=== PATIENT | male | born 1945 | race Caucasian/White ===

== ENCOUNTER 2016-09-12 14:42 | Emergency (ER) | payer MEDICARE, OTHER ==
[2016-05-05 07:21] VITALS: BMI 29.3
[~2016-09-12 14:42] MED LIST: BETAPACE 80 MG80 MG PO; CLEOCIN HCL300 MG PO; DESERYL100 MG PO; MACROBID100 MG PO; PLAVIX75 MG PO; PROZAC20 MG PO; XANAX0.25 MG PO
[2016-09-12 15:52] LABS: BASOPHILS 0.4 % (0.0-2.0); EOSINOPHILS 1.1 % (0-7); HEMATOCRIT 42.8 % (42.0-54.0); HEMOGLOBIN 14.3 g/dL (13.5-17.5); IMMATURE GRANULOCYTES 0.2 % (0-5); LYMPHOCYTES 34.2 % (15-50); MCH 29.7 pg (26.0-34.0); MCHC 33.4 g/dL (31.0-37.0); MEAN PLATELET VOLUME 9.7 fL (7.4-10.4); MONOCYTES 7.1 % (2-11); PLATELET COUNT 174 10x3/uL (130-400); RBC 4.81 10x6/uL (4.20-6.10); RDW 14.2 % (11.5-14.5); WBC 4.5 10x3/uL (4.8-10.8)
[2016-09-12 16:00] LABS: APPEARANCE HAZY (CLEAR); BACTERIA MODERATE /hpf (NONE SEEN); BILIRUBIN NEGATIVE (NEGATIVE); COLOR YELLOW (YELLOW); GLUCOSE NEGATIVE (NEGATIVE); KETONE NEGATIVE (NEGATIVE); LEUKOCYTE ESTERASE TRACE (NEGATIVE); MUCUS >1+ /lpf (NONE SEEN); NITRITE POSITIVE (NEGATIVE); PROTEIN NEGATIVE (NEGATIVE); UROBILINOGEN NORMAL (NORMAL)
[2016-09-12 16:08] LABS: ALBUMIN 3.9 g/dL (3.4-5.0); ALKALINE PHOSPHATASE 46 U/L (46-116); ALT (SGPT) 26 U/L (10-68); BILIRUBIN - TOTAL 0.37 mg/dL (0.2-1.3); CALC OSMOLALITY 279 mosm/kg (275-300); CALCIUM 8.7 mg/dL (8.5-10.1); CARBON DIOXIDE 31.1 mmol/L (21.0-32.0); CHLORIDE - SERUM 103 mmol/L (98-107); CREATININE - SERUM 1.4 mg/dL (0.6-1.3); POTASSIUM - SERUM 4.2 mmol/L (3.5-5.1); PROTEIN - SERUM 7.2 g/dL (6.4-8.2); SODIUM 139 mmol/L (136-145); UREA NITROGEN 17 mg/dL (7-18); eGFR NON AFRICAN AMERICAN 53 mL/min (90-120)
[2016-09-12 16:10] LABS: GLUCOSE 100 mg/dL (74-106)
[2016-09-12 16:19] LABS: CKMB 0.7 U/L (0.0-3.6); CREATINE KINASE 149 UL (21-232); PHOSPHOROUS 3.7 mg/dL (2.5-4.9)
[2016-09-12 16:20] LABS: TROPONIN-I < 0.017 ng/mL (0.000-0.060)
[2016-10-19] MEDS ORDERED: CYCLOBENZAPRINE10 MG PO (08:44)
[2016-10-19] MEDS ORDERED: VITAMIN B-122500 MCG PO (08:45)
[2016-10-19] MEDS ORDERED: MULTIPLE VITAMI1 TA1 PO (08:45)
[2016-10-19] MEDS ORDERED: VITAMIN D31000 UNI2 PO (08:45)
[2016-10-19] MEDS ORDERED: CRANBERRY 400 M1 TA1 PO (08:46)
== END 2016-09-12 19:55 | disposition home or self-care (01) ==
LOC: D.ER 14:42
PROVIDERS: Emergency Medicine
DX: N39.0 Urinary tract infection, site not specified (principal); R31.9 Hematuria, unspecified; R94.31 Abnormal electrocardiogram [ECG] [EKG]; R07.89 Other chest pain; K80.50 Calculus of bile duct without cholangitis or cholecystitis without obstruction; C67.9 Malignant neoplasm of bladder, unspecified; I45.10 Unspecified right bundle-branch block

== ENCOUNTER 2016-10-20 06:18 | Day surgery (SDC) | payer MEDICARE, OTHER ==
[2016-10-19 09:31] LABS: BASOPHILS 0.4 % (0-2); EOSINOPHILS 2.7 % (0-7); HEMATOCRIT 44.7 % (42.0-54.0); HEMOGLOBIN 14.9 g/dL (13.5-17.5); IMMATURE GRANULOCYTES 0.2 % (0-5); LYMPHOCYTES 37.9 % (15-50); MCH 30.2 pg (26.0-34.0); MCHC 33.3 g/dL (31.0-37.0); MCV 90.7 fL (80.0-100.0); MEAN PLATELET VOLUME 9.3 fL (7.4-10.4); MONOCYTES 9.2 % (2-11); NEUTROPHILS 49.6 % (40-80); PLATELET COUNT 172 10x3/uL (130-400); RBC 4.93 10x6/uL (4.20-6.10); RDW 13.9 % (11.5-14.5); WBC 4.9 10x3/uL (4.8-10.8)
[2016-10-19 09:39] LABS: APTT 25.7 SECONDS (22.8-39.4); INR 1.05 (0.85-1.17); PROTIME 13.6 SECONDS (11.6-15.0)
[2016-10-19 09:53] LABS: CALCIUM 8.7 mg/dL (8.5-10.1); CARBON DIOXIDE 29.1 mmol/L (21.0-32.0); CREATININE - SERUM 1.4 mg/dL (0.6-1.3); POTASSIUM - SERUM 4.1 mmol/L (3.5-5.1)
[~2016-10-20] VITALS: Ht 180.3 cm; Wt 100.7 kg
[~2016-10-20 06:18] MED LIST changes: +CRANBERRY 400 M1 TA1 PO; +CYCLOBENZAPRINE10 MG PO; +MULTIPLE VITAMI1 TA1 PO; +VITAMIN B-122500 MCG PO; +VITAMIN D31000 UNI2 PO
[2016-10-20 07:10] VITALS: BP 121/67; Ht 180.3 cm; Wt 100.7 kg
--- NOTE | 2016-10-20 08:36 | NUR ---
HX OF BLOOD CLOTS, NO SCD APPLIED. UROSTOMY BAG ON ABD, DRAPED AROUND SITE
[2016-10-20] MEDS ORDERED: HYDROCODON-ACE1 EAC7 PO (09:06)
--- NOTE | 2016-10-20 15:11 | OP ---
PATIENT NAME: CHERYL GODDARD MEDICAL RECORD: [id number] :45 LOCATION:D.[facility] ADMISSION DATE: SURGEON: CATALINA FELDER MD DATE OF OPERATION: 10/20/2016 SURGEON: Dr. Catalina Felder PREOPERATIVE DIAGNOSES: 1. Symptomatic cholelithiasis. 2. Diabetes. 3. Malignant neoplasm of the prostate. POSTOPERATIVE DIAGNOSES: 1. Symptomatic cholelithiasis. 2. Diabetes. 3. Malignant neoplasm of the prostate. PROCEDURE PERFORMED: Laparoscopic cholecystectomy. ANESTHESIA: General. COMPLICATIONS: None. SPECIMENS: Gallbladder. Case was clean contaminated. ESTIMATED BLOOD LOSS: 20 cc. OPERATIVE COURSE: After consent was obtained, the patient was taken to the operating room and placed in the supine position on the operating table. Next, general anesthesia was given via endotracheal intubation after a timeout was performed to confirm the correct patient and procedure. The abdomen was then prepped and draped in typical sterile fashion. Local anesthetic was injected just above the umbilicus. A stab incision was made with 11-blade scalpel. Using a 5-mm bladeless optical trocar, the abdomen was entered under direct laparoscopic vision. Adequate pneumoperitoneum was achieved. The abdominal cavity was inspected. No evidence of bowel injury. No evidence of bleeding. The patient was then placed in the steep reverse Trendelenburg position. All remaining trocars were then placed after the administration of local anesthetic, two 5-mm trocars in the right upper quadrant and 11-mm trocar in the subxiphoid position. The fundus of the gallbladder was grasped and retracted cephalad. The infundibulum was grasped and retracted laterally. The peritoneum was incised using electrocautery. Blunt dissection was then performed until the critical view was obtained. The cystic duct lateral, cystic artery medial, liver in a posterior window. Two clips were placed in the proximal cystic artery, 1 clip distal, 3 clips were placed in the proximal cystic duct, 1 clip distal, but duct and artery were then transected with laparoscopic Metzenbaum scissors. The remaining portion of the gallbladder was then dissected off the liver bed using electrocautery. Once complete, it was grasped with the tenaculum and removed through the 11-mm trocar and sent for permanent pathology. The operative site was then copiously irrigated and suctioned. Careful attention was paid to hemostasis, which was obtained in the liver bed using electrocautery. Again, the area was copiously irrigated and suctioned. The abdominal cavity was inspected. There was no evidence of bowel injury. No OPERATIVE REPORT [id number] CHERYL GODDARD evidence of bleeding, no evidence of bile leak. There is [address] in the cystic duct. Two clips in place in the cystic artery. At this time, all remaining instruments were removed. The abdomen was desufflated. Trocars were removed. Skin was closed with 4-0 Monocryl, Mastisol and Steri-Strips. At the end of the case, all needle and instrument counts were correct. No complications occurred. The patient extubated and transferred to the PACU in stable condition. TRANSINT:[id number] Voice Confirmation ID: [id number] DOCUMENT ID: [id number] CATALINA FELDER MD at 1511 CC: [id number] DICTATION DATE: 10/20/16 0904 CONCRETE PUMP OPERATOR HELPER: 10/20/16 1503 [facility] 10/20/16 [facility] [address] [place] [address]
== END 2016-10-20 11:40 | disposition home or self-care (01) ==
LOC: D.OPS 06:18 → D.PAN 08:00 → D.OPS 11:40
PROVIDERS: Anesthesiology
DX: K80.10 Calculus of gallbladder with chronic cholecystitis without obstruction (principal); K82.8 Other specified diseases of gallbladder; E11.9 Type 2 diabetes mellitus without complications

== ENCOUNTER → 2016-10-29 13:04 | Outpatient (CLI) | payer MEDICARE, OTHER ==
[2016-10-20 07:10] VITALS: BMI 31.0
[~2016-10-29 13:04] MED LIST changes: +HYDROCODON-ACE1 EAC7 PO
== END | disposition home or self-care (01) ==
LOC: D.LABREF 13:04
DX: R82.90 Unspecified abnormal findings in urine (principal)

== ENCOUNTER → 2016-11-19 13:37 | Outpatient (CLI) | payer MEDICARE, OTHER ==
[2016-10-20 07:10] VITALS: BMI 31.0
== END | disposition home or self-care (01) ==
LOC: D.NM 13:37
DX: N18.9 Chronic kidney disease, unspecified (principal)

== ENCOUNTER → 2016-12-07 14:09 | Outpatient (CLI) | payer MEDICARE, OTHER ==
[2016-10-20 07:10] VITALS: BMI 31.0
[2016-12-07 14:31] LABS: ANION GAP 12.6 mmol/L (8-16); CALCIUM 9.1 mg/dL (8.5-10.1); CARBON DIOXIDE 29.6 mmol/L (21.0-32.0); CREATININE - SERUM 1.5 mg/dL (0.6-1.3); POTASSIUM - SERUM 4.2 mmol/L (3.5-5.1)
== END | disposition home or self-care (01) ==
LOC: D.LAB 14:09
PROVIDERS: Urology
DX: N19 Unspecified kidney failure (principal)

== ENCOUNTER → 2017-01-14 12:26 | Outpatient (CLI) | payer MEDICARE, OTHER ==
[2016-10-20 07:10] VITALS: BMI 31.0
== END | disposition home or self-care (01) ==
LOC: D.US 12:26
DX: E11.22 Type 2 diabetes mellitus with diabetic chronic kidney disease (principal); N18.3 Chronic kidney disease, stage 3 (moderate)

== ENCOUNTER → 2017-01-20 09:00 | Outpatient (CLI) | payer MEDICARE, OTHER ==
[2016-10-20 07:10] VITALS: BMI 31.0
== END | disposition home or self-care (01) ==
LOC: D.CT 09:00
DX: R93.429 Abnormal radiologic findings on diagnostic imaging of unspecified kidney (principal); N18.3 Chronic kidney disease, stage 3 (moderate)

== ENCOUNTER 2017-04-11 05:13 | Day surgery (SDC) | payer MEDICARE, OTHER ==
[2017-04-08 10:24] LABS: BASOPHILS 0.6 % (0-2); EOSINOPHILS 2.6 % (0-7); HEMATOCRIT 44.3 % (42.0-54.0); HEMOGLOBIN 14.9 g/dL (13.5-17.5); IMMATURE GRANULOCYTES 0.2 % (0-5); LYMPHOCYTES 35.3 % (15-50); MCH 30.4 pg (26.0-34.0); MCHC 33.6 g/dL (31.0-37.0); MCV 90.4 fL (80.0-100.0); MONOCYTES 7.5 % (2-11); NEUTROPHILS 53.8 % (40-80); PLATELET COUNT 193 10x3/uL (130-400); WBC 4.7 10x3/uL (4.8-10.8)
[2017-04-08 10:40] LABS: ANION GAP 11.1 mmol/L (8-16); CALCIUM 8.9 mg/dL (8.5-10.1); CARBON DIOXIDE 30.3 mmol/L (21.0-32.0); CREATININE - SERUM 1.2 mg/dL (0.6-1.3); POTASSIUM - SERUM 4.4 mmol/L (3.5-5.1)
[~2017-04-11 05:13] MED LIST changes: +JANUVIA100 MG PO
[2017-04-11 07:52] VITALS: BP 115/74; BMI 31.0
--- NOTE | 2017-04-11 09:42 | NUR ---
SECOND TIME OUT AT 0937 FOR PORT REMOVAL. SAME STAFF.
[2017-04-11] MEDS ORDERED: OXYCODONE HCL5 MG PO (09:51)
--- NOTE | 2017-04-11 19:28 | OP ---
PATIENT NAME: CHERYL GODDARD MEDICAL RECORD: [id number] :45 LOCATION:D.[facility] ADMISSION DATE: SURGEON: CATALINA FELDER MD DATE OF OPERATION: 04/11/2017 SURGEON: Catalina Felder MD PREOPERATIVE DIAGNOSES: 1. Lipoma of abdominal wall 2. Prostate cancer. 3. Diabetes. POSTOPERATIVE DIAGNOSES: 1. Lipoma of abdominal wall 2. Prostate cancer. 3. Diabetes. PROCEDURE PERFORMED: 1. Excisional biopsy of a right flank lipoma 6 x 5 x 5 cm. 2. Removal of a tunneled port left chest wall. ANESTHESIA: General. COMPLICATIONS: None. SPECIMENS: 1. Lipoma 6 x 5 x 5 cm. 2. Tunneled PowerPort and catheter. Case was clean. COMPLICATIONS: None. ESTIMATED BLOOD LOSS: 20 cc. OPERATIVE COURSE: After consent was obtained, the patient was taken to the operating room and placed in the supine position on the operative table. Next, general anesthesia was given via endotracheal intubation after a timeout was taken to confirm the correct patient and procedure. The patient was then placed in the left lateral decubitus position on a beanbag. The right flank was prepped and draped in typical sterile fashion. A 20 cc of local anesthetic were injected. Skin was incised over the lipoma with a 15 blade scalpel. Dissection continued. The mass was circumferentially dissected using Metzenbaum scissors. The lipoma was within the latissimus muscle on the back. Dissection continued until the lipoma was circumferentially excised and sent it through for pathology. The wound bed was copiously irrigated and suctioned. Attention was achieved hemostasis. The wound was closed in multiple layers. Deep fascia was closed with 3-0 Vicryl sutures, superficial fascia was closed with 3-0 Vicryl suture. The skin was closed with 4-0 Monocryl, Mastisol and Steri-Strips. Next, the drapes removed. The patient was repositioned into the supine position. Left chest wall was then prepped and draped in typical sterile fashion. A 10 cc of local anesthetic were injected. The previous incision was opened using a 15-blade scalpel. Dissection continued to the level of the port using a 15-blade, scalpel, and electrocautery. The port was circumferentially OPERATIVE REPORT [id number] CHERYL GODDARD dissected. Once it was free, it was grasped with a clamp. The port was removed as well as the tunneled catheter. The specimen was sent off the field. The wound was copiously irrigated and suctioned. Hemostasis was obtained with electrocautery. The wound was closed in 2 layers. The fascial layer was closed with 3-0 Vicryl suture. The skin was closed with 4-0 Monocryl, Mastisol and Steri-Strips. At the end of the case, all needle and instrument counts were correct. No complications occurred. The patient was extubated and transferred to the PACU in stable condition. TRANSINT:[id number] Voice Confirmation ID: [id number] DOCUMENT ID: [id number] CATALINA FELDER MD at 1928 CC: [id number] DICTATION DATE: 04/11/17 0957 BENCH WORKER APPRENTICE: 04/11/17 1143 [facility] 04/11/17 [facility] [address] [place] [address]
== END 2017-04-11 11:30 | disposition home or self-care (01) ==
LOC: D.OPS 05:13 → D.PAN 08:00 → D.OPS 11:30
PROVIDERS: Anesthesiology
DX: D17.1 Benign lipomatous neoplasm of skin and subcutaneous tissue of trunk (principal); C61 Malignant neoplasm of prostate; E11.9 Type 2 diabetes mellitus without complications; Z01.812 Encounter for preprocedural laboratory examination

== ENCOUNTER → 2017-05-03 16:10 | Outpatient (CLI) | payer MEDICARE, OTHER ==
[2017-04-11 07:52] VITALS: BMI 31.0
[~2017-05-03 16:10] MED LIST changes: +OXYCODONE HCL5 MG PO
== END | disposition home or self-care (01) ==
LOC: D.LABREF 16:10
DX: N39.0 Urinary tract infection, site not specified (principal)

== ENCOUNTER → 2017-05-24 14:47 | Outpatient (CLI) | payer MEDICARE, OTHER | END | disposition home or self-care (01) | LOC: D.LABREF 14:47 | DX: R31.9 Hematuria, unspecified (principal); R79.9 Abnormal finding of blood chemistry, unspecified ==

== ENCOUNTER → 2018-01-19 17:09 | Outpatient (CLI) | payer MEDICARE, OTHER | END | disposition home or self-care (01) | LOC: D.LABREF 17:09 | DX: N39.0 Urinary tract infection, site not specified (principal) ==

== ENCOUNTER → 2018-01-31 14:51 | Outpatient (CLI) | payer MEDICARE, OTHER | END | disposition home or self-care (01) | LOC: D.CT 14:51 | DX: N39.0 Urinary tract infection, site not specified (principal) ==

== ENCOUNTER → 2018-02-03 17:42 | Outpatient (CLI) | payer MEDICARE, OTHER ==
[2018-02-03 18:50] LABS: APPEARANCE CLEAR (CLEAR); BILIRUBIN NEGATIVE (NEGATIVE); COLOR YELLOW (YELLOW); GLUCOSE NEGATIVE (NEGATIVE); KETONE NEGATIVE (NEGATIVE); NITRITE NEGATIVE (NEGATIVE); PROTEIN NEGATIVE (NEGATIVE); UROBILINOGEN NORMAL (NORMAL)
== END | disposition home or self-care (01) ==
LOC: D.LABREF 17:42
PROVIDERS: Urology
DX: N39.0 Urinary tract infection, site not specified (principal)

== ENCOUNTER → 2018-04-12 21:04 | Outpatient (CLI) | payer MEDICARE, OTHER | END | disposition home or self-care (01) | LOC: D.LABREF 21:04 | DX: N39.0 Urinary tract infection, site not specified (principal) ==

== ENCOUNTER → 2018-04-28 18:36 | Outpatient (CLI) | payer MEDICARE, OTHER | END | disposition home or self-care (01) | LOC: D.LABREF 18:36 | DX: R31.9 Hematuria, unspecified (principal); D72.829 Elevated white blood cell count, unspecified ==

== ENCOUNTER → 2018-05-30 19:50 | Outpatient (CLI) | payer MEDICARE, OTHER ==
[2018-05-30 20:11] LABS: APPEARANCE CLEAR (CLEAR); BILIRUBIN NEGATIVE (NEGATIVE); COLOR YELLOW (YELLOW); GLUCOSE NEGATIVE (NEGATIVE); KETONE NEGATIVE (NEGATIVE); NITRITE NEGATIVE (NEGATIVE); PROTEIN TRACE mg/dL (NEGATIVE); SPECIFIC GRAVITY 1.015 (1.005-1.020); UROBILINOGEN NORMAL (NORMAL)
[2018-05-30 20:14] LABS: BACTERIA FEW /hpf (NONE SEEN); RED CELLS - URINE OCC /hpf (0-5); WHITE CELLS - URINE OCC /hpf (0-5)
== END | disposition home or self-care (01) ==
LOC: D.LABREF 19:50
PROVIDERS: Urology
DX: N39.0 Urinary tract infection, site not specified (principal)

== ENCOUNTER → 2018-08-02 20:47 | Outpatient (CLI) | payer MEDICARE, OTHER | END | disposition home or self-care (01) | LOC: D.LABREF 20:47 | DX: R82.71 Bacteriuria (principal) ==

== ENCOUNTER → 2018-08-28 19:28 | Outpatient (CLI) | payer MEDICARE, OTHER ==
[2018-08-28 19:54] LABS: BASOPHILS 0.6 % (0-2); EOSINOPHILS 1.9 % (0-7); HEMATOCRIT 42.5 % (42.0-54.0); HEMOGLOBIN 14.2 g/dL (13.5-17.5); IMMATURE GRANULOCYTES 0.2 % (0-5); LYMPHOCYTES 23.1 % (15-50); MCH 30.3 pg (26.0-34.0); MCHC 33.4 g/dL (31.0-37.0); MCV 90.6 fL (80.0-100.0); MEAN PLATELET VOLUME 10.2 fL (7.4-10.4); MONOCYTES 11.5 % (2-11); NEUTROPHILS 62.7 % (40-80); PLATELET COUNT 189 10x3/uL (130-400); RBC 4.69 10x6/uL (4.20-6.10); RDW 14.3 % (11.5-14.5); WBC 6.4 10x3/uL (4.8-10.8)
[2018-08-28 20:55] LABS: ALBUMIN 3.7 g/dL (3.4-5.0); ANION GAP 15.4 mmol/L (8-16); BILIRUBIN - TOTAL 0.29 mg/dL (0.2-1.3); CALCIUM 8.5 mg/dL (8.5-10.1); CARBON DIOXIDE 27.9 mmol/L (21.0-32.0); CREATININE - SERUM 1.3 mg/dL (0.6-1.3); POTASSIUM - SERUM 4.3 mmol/L (3.5-5.1)
== END | disposition home or self-care (01) ==
LOC: D.LABREF 19:28
DX: R10.9 Unspecified abdominal pain (principal); R50.9 Fever, unspecified; N12 Tubulo-interstitial nephritis, not specified as acute or chronic

== ENCOUNTER → 2019-07-06 10:33 | Outpatient (CLI) | payer MEDICARE, OTHER ==
--- NOTE | ~2019-07-06 | HEMODYNAMI ---
PATIENT:CHERYL GODDARD MEDICAL RECORD: [id number] : 45 LOCATION:[facility] ADMISSION DATE: 07/06/19 Generatedon:07/06/201911:30 Patient name: CHERYL GODDARD Patient #: [id number] SSN: : 1945 Date of study: 07/06/2019 Page: Of Hemodynamic Procedure Report Patient Data Patient Demographics Procedure consent was obtained First Name: CHERYL Gender: Male Last Name: RUPESH : 1945 Middle Initial: RADHA Age: 73 year(s) Patient #: [id number] Race: Unknown Additional ID: [id number] Contact details Address: [address] [place] [address] State: [place] City: [place] Zip code: [address] Past Medical History Allergies Allergen Reaction Date Comments Reported Iodine 05/05/2016 Other allergy 05/05/2016 KEFLEX Iodine 07/06/2019 Admission Admission Data Admission Date: 07/06/2019 Admission Time: 10:33 Procedure Procedure Types Cath Procedure Peripheral Cath Diagnostic Procedure Miscellaneous Aspiration/Injection (Joint) Procedure Description Procedure Date Procedure Date: 07/06/2019 Procedure Start Time: 11:13 Procedure Staff Name Function Trent Gonzalez RT Monitor Michael Tse MD Performing Physician Kendra Zarate RN Nurse Procedure Data Cath Procedure Fluoroscopy Diagnostic fluoroscopy Total fluoroscopy Time: 0.6 time: 0.6 min min Diagnostic fluoroscopy Total fluoroscopy dose: 9 dose: 9 mGy mGy Hemodynamics Rest Pre Cath Intra NCS Post Cath Procedure Log Time Note 11:10:47 pt.states not allergic to topicl iodine 18:40:47 not using contrast 18:40:47 pt.states not allergic to topical iodine 18:40:47 BANDAIDE APPLIED TO RT.GROIN SITE STABLE AND PT SENT HOME\ 11:02:52 Trent Gonzalez RT (R) (CV) sent for patient. Start room use. 11:03:02 Time tracking: Regular hours (M-F 7:00 - 5:00) 11:03:09 Patient received from Other to IR Alert and oriented. Tansferred to table in Supine position. 11:03:12 Signed procedure consent form obtained from patient. 11:03:13 Correct patient and procedure confirmed by team. 11:03:16 Full Disclosure recording started 11:03:17 - 11:03:18 Pre-op teaching completed and patient verbalized understanding. 11:03:18 Pre-procedure instructions explained to patient. 11:03:30 Patient allergic to Iodine 11:03:39 Is patient on blood thinner?No 11:03:41 Is the patient allergic to Iodine/contrast media? Yes. 11:03:42 Was the patient premedicated? No 11:04:03 Right groin area was prepped with betadine and draped in sterile fashio n 11:11:09 Physician arrived 11::10 --------ALL STOP TIME OUT------ 11:11:14 Final Timeout: patient, procedure, and site verified with staff and physician. All members of the team are in agreement. 11:11:16 Right groin site verified by team. 11:11:22 Sedation plan: Local Anesthetic Medication:Lidocaine 11:11:56 SAFE-T PLUS MYELOGRAM TRAY opened to sterile field. 11:13:19 Procedure started. 11:13:23 Local anesthetic to right grion with Lidocaine 1% by Michael Tse MD.INITIAL ACCESS ONLY 11:19:42 Full Disclosure recording stopped 11:26:50 Procedure ended.(Physican Out) 11:29:25 Fluoroscopy time 00.60 minutes. 11:29:29 Fluoroscopy dose: 9 mGy 11:29:29 Flurop Dose total: 9 Device Usage Item Name Manufacture Quantity Catalog Hospital Part Current Minimal Lot# / Number Charge Number Stock Stock Serial# Code SAFE-T CareFusion 1 [id number] PLUS MYELOGRAM TRAY Signature Audit [place] Stage Time Signature Unsigned Intra-Procedure 07/06/2019 Trent 11:29:55 AM Lisa RT (R) (CV) [facility] [address] [place] [address]
== END | disposition home or self-care (01) ==
LOC: D.RAD 10:30
PROVIDERS: ATTEND Orthopaedic Surgery
DX: M16.9 Osteoarthritis of hip, unspecified (principal); M16.11 Unilateral primary osteoarthritis, right hip

== ENCOUNTER → 2019-07-23 12:38 | Outpatient (CLI) | payer MEDICARE, OTHER ==
--- NOTE | ~2019-07-23 | HEMODYNAMI ---
PATIENT:CHERYL GODDARD MEDICAL RECORD: [id number] : 45 LOCATION:[facility] ADMISSION DATE: 07/23/19 Generatedon:07/23/201913:43 Patient name: CHERYL GODDARD Patient #: [id number] SSN: : 1945 Date of study: 07/23/2019 Page: Of Hemodynamic Procedure Report Patient Data Patient Demographics Procedure consent was obtained First Name: CHERYL Gender: Male Last Name: RUPESH : 1945 Middle Initial: RADHA Age: 73 year(s) Patient #: [id number] Race: Unknown Additional ID: [id number] Contact details Address: [address] [place] [address] State: [place] City: [place] Zip code: [address] Past Medical History Allergies Allergen Reaction Date Comments Reported Iodine 05/05/2016 Other allergy 05/05/2016 KEFLEX Iodine 07/06/2019 Admission Admission Data Admission Date: 07/23/2019 Admission Time: 12:38 Procedure Procedure Types Cath Procedure Peripheral Cath Diagnostic Procedure Miscellaneous Aspiration/Injection (Joint) Procedure Description Procedure Date Procedure Date: 07/23/2019 Procedure Start Time: 13:34 Procedure Staff Name Function Marvin Graham MD Performing Physician Julia Martinez RN Nurse Shannon Gonzalez RT Monitor Procedure Data Cath Procedure Fluoroscopy Diagnostic fluoroscopy Total fluoroscopy Time: 0.8 time: 0.8 min min Diagnostic fluoroscopy Total fluoroscopy dose: 7 dose: 7 mGy mGy Hemodynamics Rest Pre Cath Intra NCS Post Cath Procedure Log Time Note 13:24:56 SHANNON GONZALEZ RT R sent for patient. Start room use. 13:24:59 Time tracking: Regular hours (M-F 7:00 - 5:00) 13:25:08 Patient received from Other to IR Alert and oriented. Tansferred to table in Supine position. 13:25:12 Signed procedure consent form obtained from patient. 13:25:16 Correct patient and procedure confirmed by team. 13:25:17 Full Disclosure recording started 13:25:18 - 13:25:34 Pre-procedure instructions explained to patient. 13:25:34 Pre-op teaching completed and patient verbalized understanding. 13:25:43 Is patient on blood thinner?No 13:33:40 Left groin area was prepped with chlora-prep and draped in sterile fashion 13:33:43 Physician arrived 13:33:44 --------ALL STOP TIME OUT------ 13::44 Final Timeout: patient, procedure, and site verified with staff and physician. All members of the team are in agreement. 13:33:48 Left groin site verified by team. 13:33:55 Sedation plan: Local Anesthetic Medication:Lidocaine 13:34:07 Procedure started. 13:34:12 Local anesthetic to left GROIN with Lidocaine 1% by Marvin Graham MD.INITIAL ACCESS ONLY 13:34:26 SAFE-T PLUS MYELOGRAM TRAY opened to sterile field. 13:42:16 Procedure ended.(Physican Out) 13:42:39 Fluoroscopy time 00.80 minutes. 13:42:45 Fluoroscopy dose: 7 mGy 13:42:45 Flurop Dose total: 7 13:43:02 BANDAIDE APPLIED SIT STABLE PT SENT HOME Device Usage Item Name Manufacture Quantity Catalog Hospital Part Current Minimal Lot# / Number Charge Number Stock Stock Serial# Code SAFE-T CareFusion 1 [id number] PLUS MYELOGRAM TRAY Signature Audit [place] Stage Time Signature Unsigned Intra-Procedure 07/23/2019 Shannon 1:43:22 PM [facility] RT (R) () [facility] [address] [place] [address]
== END | disposition home or self-care (01) ==
LOC: D.RAD 12:38
PROVIDERS: ATTEND Orthopaedic Surgery
DX: M25.552 Pain in left hip (principal)

== ENCOUNTER → 2019-11-14 08:47 | Outpatient (CLI) | payer MEDICARE, OTHER ==
--- NOTE | ~2019-11-14 | HEMODYNAMI ---
PATIENT:CHERYL GODDARD MEDICAL RECORD: [id number] : 45 LOCATION:[facility] ADMISSION DATE: 11/14/19 Generatedon:11/14/201910:25 Patient name: CHERYL GODDARD Patient #: [id number] SSN: : 1945 Date of study: 11/14/2019 Page: Of Hemodynamic Procedure Report Patient Data Patient Demographics Procedure consent was obtained First Name: CHERYL Gender: Male Last Name: RUPESH : 1945 Middle Initial: RADHA Age: 74 year(s) Patient #: [id number] Race: Unknown Additional ID: [id number] Contact details Address: [address] [place] [address] State: [place] City: [place] Zip code: [address] Past Medical History Allergies Allergen Reaction Date Comments Reported Iodine 05/05/2016 Other allergy 05/05/2016 KEFLEX Iodine 07/06/2019 Other allergy 11/14/2019 KEFLEX SULFA Admission Admission Data Admission Date: 11/14/2019 Admission Time: 8:47 Procedure Procedure Types Cath Procedure Peripheral Cath Diagnostic Procedure Miscellaneous Aspiration/Injection (Joint) Procedure Description Procedure Date Procedure Date: 11/14/2019 Procedure Start Time: 10:05 Procedure Staff Name Function Diamante Garcia MD Performing Physician Trent Gonzalez RT Monitor Procedure Data Cath Procedure Fluoroscopy Diagnostic fluoroscopy Total fluoroscopy Time: 0.6 time: 0.6 min min Diagnostic fluoroscopy Total fluoroscopy dose: 16 dose: 16 mGy mGy Hemodynamics Rest Pre Cath Intra NCS Post Cath Procedure Log Time Note 9:27:32 Trent Gonzalez RT (R) (CV) sent for patient. Start room use. 9:27:35 Time tracking: Regular hours (M-F 7:00 - 5:00) 9:27:56 Patient received from Outpatients to IR Alert and oriented. Tansferred to table in Supine position. 9:28:00 Signed procedure consent form obtained from patient. 9:28:04 Correct patient and procedure confirmed by team. 9:28:08 Pre-procedure instructions explained to patient. 9:28:09 Pre-op teaching completed and patient verbalized understanding. 9:28:26 Patient allergic to Other allergyKEFLEX SULFA 9:28:29 Is patient on blood thinner?No 10:00:46 Bilateral groins area was prepped with betadine and draped in sterile fashion 10:04:43 Physician arrived 10:05:11 Physician arrived 10:05:12 --------ALL STOP TIME OUT------ 10:05:13 Final Timeout: patient, procedure, and site verified with staff and physician. All members of the team are in agreement. 10:05:15 Bilateral groins site verified by team. 10:05:21 Sedation plan: Local Anesthetic Medication:Lidocaine 10:05:37 Procedure started. 10:05:38 Full Disclosure recording started 10:05:52 Local anesthetic to Right Hip with Lidocaine 1% by Diamante Garcia MD.INITIAL ACCESS ONLY 10:06:01 SAFE-T PLUS MYELOGRAM TRAY opened to sterile field. 10:06:02 SAFE-T PLUS MYELOGRAM TRAY opened to sterile field. 10:14:14 Local anesthetic to Left Hip with Lidocaine 1% by Diamante Garcia MD.ADDITIONAL ACCESS 10:22:42 Procedure ended.(Physican Out) 10:24:09 Fluoroscopy time 00.60 minutes. 10:24:13 Fluoroscopy dose: 16 mGy 10:24:13 Flurop Dose total: 16 10:24:43 BANDAIDE APPLIED TO RT AND LT GROIN SITES STABLE PT SENT HOME Device Usage Item Name Manufacture Quantity Catalog Hospital Part Current Minimal Lot# / Number Charge Number Stock Stock Serial# Code SAFE-T CareFusion 2 [id number] PLUS MYELOGRAM TRAY Signature Audit [place] Stage Time Signature Unsigned Intra-Procedure 11/14/2019 Trent 10:25:15 AM [facility] RT (R) (CV) [facility] [address] [place] [address]
== END | disposition home or self-care (01) ==
LOC: D.RAD 08:47
PROVIDERS: ATTEND Orthopaedic Surgery
DX: M16.0 Bilateral primary osteoarthritis of hip (principal)

== ENCOUNTER → 2019-11-15 13:10 | Outpatient (CLI) | payer MEDICARE, OTHER | END | disposition home or self-care (01) | LOC: D.MRI 13:10 | PROVIDERS: ATTEND Orthopaedic Surgery | DX: M54.16 Radiculopathy, lumbar region (principal) ==

== ENCOUNTER → 2020-02-11 12:37 | Outpatient (CLI) | payer MEDICARE, OTHER ==
--- NOTE | ~2020-02-11 | HEMODYNAMI ---
PATIENT:CHERYL GODDARD MEDICAL RECORD: [id number] : 45 LOCATION:[facility] ADMISSION DATE: 02/11/20 Generatedon:02/11/202014:41 Patient name: CHERYL GODDARD Patient #: [id number] SSN: : 1945 Date of study: 02/11/2020 Page: Of Hemodynamic Procedure Report Patient Data Patient Demographics First Name: CHERYL Gender: Male Last Name: RUPESH : 1945 [facility] Initial: RADHA Age: 74 year(s) Patient #: [id number] Race: Unknown Additional ID: [id number] Contact details Address: [address] [place] [address] State: [place] City: [place] Zip code: [address] Past Medical History Allergies Allergen Reaction Date Comments Reported Iodine 05/05/2016 Other allergy 05/05/2016 KEFLEX Iodine 07/06/2019 Other allergy 11/14/2019 KEFLEX SULFA Admission Admission Data Admission Date: 02/11/2020 Admission Time: 12:37 Procedure Procedure Types Cath Procedure Peripheral Cath Diagnostic Procedure Spout Worker Peripheral Procedures Miscellaneous Aspiration/Injection (Joint) Procedure Description Procedure Date Procedure Date: 02/11/2020 Procedure Start Time: 13:12 Procedure Staff Name Function Alida Ayon RT Crew Trainer Michael Tse MD Performing Physician Hemodynamics Rest Pre Cath Intra NCS Post Cath Procedure Log Time Note 13:00:15 Time tracking: Regular hours (M-F 7:00 - 5:00) 13:10:40 Pre-procedure instructions explained to patient. 13:10:41 Pre-op teaching completed and patient verbalized understanding. 13:11:01 Right Hip was prepped with betadine and draped in sterile fashion. 13:11:08 Left Hip was prepped with betadine and draped in sterile fashion. 13:11:15 - 13:11:17 Physician arrived 13:11:18 --------ALL STOP TIME OUT------ 13:11:19 Final Timeout: patient, procedure, and site verified with staff and physician. All members of the team are in agreement. 13:12:42 Procedure started. 13:12:43 Full Disclosure recording started 13:12:50 Local anesthetic to Right Hip with Lidocaine 1% by Michael Tse MD.INITIAL ACCESS ONLY 13:44:52 jewel. hip injected 13:44:56 Procedure ended.(Physican Out) 13:45:09 SAFE-T PLUS MYELOGRAM TRAY opened to sterile field. 13:46:11 Full Disclosure recording stopped Device Usage Item Name Manufacture Quantity Catalog Hospital Part Current Minimal Lot# / Number Charge Number Stock Stock Serial# Code SAFE-T CareFusion 1 [id number] PLUS MYELOGRAM TRAY Signature Audit [place] Stage Time Signature Unsigned Intra-Procedure 02/11/2020 Alida Ayon RT(R) 1:46:05 PM RT(R) 02/11/2020 2:39:37 PM Intra-Procedure 02/11/2020 Alida Ayon 2:41:22 PM RT(R) [facility] [address] [place] [address]
== END | disposition home or self-care (01) ==
LOC: D.RAD 12:37
PROVIDERS: ATTEND Orthopaedic Surgery
DX: M16.11 Unilateral primary osteoarthritis, right hip (principal); M16.12 Unilateral primary osteoarthritis, left hip

== ENCOUNTER → 2020-09-05 12:46 | Outpatient (CLI) | payer MEDICARE, OTHER ==
--- NOTE | 2020-09-04 13:14 | NUR ---
CONFIRMED PT APPT TOMORROW FOR RIGHT HIP INJECTION. PT CONFIRMED ARRIVAL TIME AND NO BLOOD THINNERS. PT DENIES ANY QUESTIONS AT THIS TIME.
--- NOTE | ~2020-09-05 | HEMODYNAMI ---
PATIENT:CHERYL GODDARD MEDICAL RECORD: [id number] : 45 LOCATION:[facility] ADMISSION DATE: 09/05/20 Generatedon:113:33 Patient name: CHERYL GODDARD Patient #: [id number] SSN: : 1945 Date of study: 09/05/2020 Page: Of Hemodynamic Procedure Report Patient Data Patient Demographics Procedure consent was obtained First Name: CHERYL Gender: Male Last Name: RUPESH : 1945 [facility] Initial: RADHA Age: 75 year(s) Patient #: [id number] Race: Unknown Additional ID: [id number] Contact details Address: [address] [place] [address] State: [place] City: [place] Zip code: [address] Past Medical History Allergies Allergen Reaction Date Comments Reported Iodine 05/05/2016 Other allergy 05/05/2016 KEFLEX Iodine 07/06/2019 Other allergy 11/14/2019 KEFLEX SULFA Iodine 06/02/2020 Other allergy 06/02/2020 cephalexin, keflex, Admission Admission Data Admission Date: 09/05/2020 Admission Time: 12:46 Procedure Procedure Types Cath Procedure Peripheral Cath Diagnostic Procedure Miscellaneous Aspiration/Injection (Joint) Procedure Description Procedure Date Procedure Date: 09/05/2020 Procedure Start Time: 13:23 Procedure Staff Name Function Diamante Garcia MD Performing Physician Trent Gonzalez RT Monitor Procedure Data Cath Procedure Fluoroscopy Diagnostic fluoroscopy Total fluoroscopy Time: 0.4 time: 0.4 min min Diagnostic fluoroscopy Total fluoroscopy dose: 5 dose: 5 mGy mGy Hemodynamics Rest Pre Cath Intra NCS Post Cath Procedure Log Time Note 13:09:18 Trent Gonzalez RT (R) (CV) sent for patient. Start room use. 13:09:31 Patient received from Other to IR Alert and oriented. Tansferred to table in Supine position. 13:09:34 Signed procedure consent form obtained from patient. 13:09:34 Correct patient and procedure confirmed by team. 13:09:36 Full Disclosure recording started 13:09:36 - 13:09:37 Pre-procedure instructions explained to patient. 13:09:37 Pre-op teaching completed and patient verbalized understanding. 13::44 Is patient on blood thinner?No 13::47 SAFE-T PLUS MYELOGRAM TRAY opened to sterile field. 13:10:09 Right Hip was prepped with betadine and draped in sterile fashion. 13:23:12 Physician arrived 13::12 --------ALL STOP TIME OUT------ 13:23:13 Final Timeout: patient, procedure, and site verified with staff and physician. All members of the team are in agreement. 13:23:15 Right groin site verified by team. 13:23:21 Sedation plan: Local Anesthetic Medication:Lidocaine 13::44 Procedure started. 13:23:52 Local anesthetic to Right Hip with Lidocaine 1% by Diamante Garcia MD.INITIA L ACCESS ONLY 13:32:02 Procedure ended.(Physican Out) 13:32:28 Procedure ended.(Physican Out) 13:32:36 Fluoroscopy time 00.40 minutes. 13:32:41 Fluoroscopy dose: 5 mGy 13:32:41 Flurop Dose total: 5 13:33:06 BANDAIDE APPLIED SITE STABLE PT SENT HOME Device Usage Item Name Manufacture Quantity Catalog Hospital Part Current Minimal Lot# / Number Charge Number Stock Stock Serial# Code SAFE-T CareFusion 1 [id number] PLUS MYELOGRAM TRAY Signature Audit [place] Stage Time Signature Unsigned Intra-Procedure 09/05/2020 Trent 1:33:23 [facility] [address] [place] [address]
== END | disposition home or self-care (01) ==
LOC: D.RAD 12:46
PROVIDERS: ATTEND Orthopaedic Surgery
DX: M16.11 Unilateral primary osteoarthritis, right hip (principal)

== ENCOUNTER → 2020-11-17 17:08 | Outpatient (CLI) | payer MEDICARE, OTHER | END | disposition home or self-care (01) | LOC: D.LABREF 17:08 | PROVIDERS: ATTEND Orthopaedic Surgery | DX: M16.11 Unilateral primary osteoarthritis, right hip (principal) ==